=== PATIENT | male | born 1990 | race Caucasian/White ===

== ENCOUNTER 2016-09-24 17:47 | Emergency (ER) | payer SELFPAY ==
[~2016-09-24] VITALS: Ht 177.8 cm; Wt 84.5 kg
[2016-09-24 18:00] VITALS: BP 140/82
== END 2016-09-24 19:57 | disposition home or self-care (01) ==
LOC: ED 19:51
DX: S06.0X0A Concussion without loss of consciousness, initial encounter (principal); S29.012A Strain of muscle and tendon of back wall of thorax, initial encounter; W01.0XXA Fall on same level from slipping, tripping and stumbling without subsequent striking against object, initial encounter; Y93.89 Activity, other specified; Y92.89 Other specified places as the place of occurrence of the external cause; Y99.8 Other external cause status
CPT/HCPCS: 70450; 71020; 72072; 72125; 99284

== ENCOUNTER 2017-07-20 12:39 | Emergency (ER) | payer SELFPAY ==
[~2017-07-20] VITALS: Ht 177.8 cm; Wt 87.7 kg
[2017-07-20] MEDS ORDERED: HYDROcodone/APAP 5/325 TABLET ONE (14:10)
[2017-07-20] MEDS ORDERED: ONDANSETRON ODT 4 MG ONE (14:10)
[2017-07-20] MEDS ORDERED: ONDANSETRON ODT 4 MG PO ONE (14:30)
[2017-07-20] MEDS ORDERED: HYDROcodone/APAP 5/325 TABLET PO PRN (14:30)
[2017-07-20 15:06] VITALS: BP 129/66
== END 2017-07-20 15:08 | disposition home or self-care (01) ==
LOC: ED 15:02
DX: S06.0X9A Concussion with loss of consciousness of unspecified duration, initial encounter (principal); Y08.89XA Assault by other specified means, initial encounter; Y93.89 Activity, other specified; Y99.8 Other external cause status; Y92.481 Parking lot as the place of occurrence of the external cause
CPT/HCPCS: 70450; 70486; 99284; Q0162

== ENCOUNTER 2017-11-16 12:04 | Emergency (ER) | payer SELFPAY ==
[~2017-11-16] VITALS: Ht 177.8 cm; Wt 92.3 kg
[2017-11-16 12:05] VITALS: BP 154/91
[2017-11-16] MEDS ORDERED: HYDROcodone/APAP 5/325 TABLET ONE (12:57)
[2017-11-16] MEDS ORDERED: HYDROcodone/APAP 5/325 TABLET PO ONE (13:00)
== END 2017-11-16 13:16 | disposition home or self-care (01) ==
LOC: ED 13:10
DX: S81.812D Laceration without foreign body, left lower leg, subsequent encounter (principal); X58.XXXD Exposure to other specified factors, subsequent encounter
CPT/HCPCS: 29530; 99283